=== PATIENT | male | born 2000 | race Caucasian/White ===

== ENCOUNTER 2019-10-21 09:57 | Day surgery (SDC) | payer OTHER ==
[~2019-10-21 09:57] MED LIST: Buffered Lidocaine 1% SYRIN* 1 ML/SYRINGE INTRADERM ONE; Famotidine IV* 10 MG/ML 2 ML (20 mg) IV ONE; Lactated Ringers 1000 ML Bag* 1,000 ML IV SCH
[2019-10-21] MEDS ORDERED: ceFAZolin 2 GM PREMIX in ORs 2 GM/50 ML BAG ONE (10:10)
[2019-10-21] MEDS ORDERED: ceFAZolin VIAL(*) VIAL ONE (10:10)
[2019-10-21] MEDS ORDERED: Famotidine IV* 10 MG/ML 2 ML (20 mg) ONE (10:11)
[2019-10-21] MEDS ORDERED: fentaNYL* 50 MCG/ML 2 ML VIAL (100 MCG VIAL) ONE ×2 (10:53→12:14)
[2019-10-21] MEDS ORDERED: Midazolam* 1 MG/ML 5 ML VIAL (5 MG) ONE (10:53)
[2019-10-21] MEDS ORDERED: Lidocaine 1% MPF ** 5 ML VIAL ONE (11:19)
[2019-10-21] MEDS ORDERED: ROPIVACAINE 5 MG/ML 30 ML BTL (0.5%) ONE (11:19)
[2019-10-21] MEDS ORDERED: Ketorolac INJ* 30 MG/ML 1 ML VIAL ONE (12:10)
[2019-10-21] MEDS ORDERED: Lidocaine 2% PF * 5 ML VIAL ONE (12:14)
[2019-10-21] MEDS ORDERED: Succinylcholine* 20 MG/ML 10 ML VIAL ONE (12:14)
[2019-10-21] MEDS ORDERED: Dexamethasone IV* 4 MG/ML 1 ML (4 MG) ONE (12:14)
[2019-10-21] MEDS ORDERED: Ondansetron INJ* 2 MG/ML VIAL ONE (12:14)
[2019-10-21] MEDS ORDERED: DiMENhydriNATE IV* 50 MG/ML VIAL ONE (12:14)
[2019-10-21] MEDS ORDERED: Propofol* 10 MG/ML 20 ML BTL ONE (12:14)
[2019-10-21] MEDS ORDERED: DiMENhydriNATE IV* 50 MG/ML VIAL IV PUSH PRN (13:46)
[2019-10-21] MEDS ORDERED: Acetaminophen TAB* 325 MG PO PRN (13:46)
[2019-10-21] MEDS ORDERED: oxyCODONE TAB* 5 MG TAB PO PRN (13:46)
[2019-10-21] MEDS ORDERED: Naloxone* 0.4 MG/ML 1 ML VIAL IV PRN (13:46)
[2019-10-21 15:20] VITALS: BP 141/81
--- NOTE | 2019-10-31 16:19 | OP ---
OPERATIVE REPORT: DATE OF OPERATION: 10/21/19 DATE OF : 89 ATTENDING SURGEON: Zac Dominguez MD SUPERVISOR SCENIC ARTS: PRISCILLA Jacobs Rocket Scientist was needed for the entirety of the case to help with positioning, retraction, and utilized throughout all portions of the case. ANESTHESIOLOGIST: Dr. Beltran. ANESTHESIA: General interscalene block. PRE-OP DIAGNOSIS: Posterior labral tear. POST-OP DIAGNOSIS: Posterior labral tear. OPERATIVE PROCEDURE: Right shoulder arthroscopy with posterior labral repair and chondroplasty. COMPLICATIONS: None. ESTIMATED BLOOD LOSS: Minimal. IMPLANTS USED: Three [employer] Bioraptors. DISPOSITION: Stable. 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 He was diagnosed with labral tear with concerns that this could be an anterior, faith healer ior as well as a superior labral tear. After extensive discussion of the risks and benefits of opera tive versus nonoperative treatment, he has elected to proceed with surgical treatment. Risks include d, but not limited to bleeding; infection; damage to nerves, vessels, surrounding structures; wound n onhealing; persistent pain; need for further surgery; scarring; stiffness; incomplete relief of sympt oms; and risks of anesthesia. DESCRIPTION OF PROCEDURE: The patient was greeted in the preoperative area by the attending surgeon. The correct extremity was marked and consent was confirmed. The patient underwent interscalene nerv e block by anesthesiologist, after which he was brought back to the operating suite. He was placed i n supine position on the operating table. He underwent general anesthesia with endotracheal intubati on, after which he was placed in the left lateral decubitus position. With all bony prominences padd ed, he was secured with a pegboard. The right shoulder was draped unsterile with 10 and then 15 poun ds of traction. The right shoulder was prepped and draped in the usual sterile fashion using chlorhe xidine soap, scrub, and alcohol wipe and a final prep of ChloraPrep. After appropriate surgical pause indicating side, site, procedure, and administration of antibiotics, a standard posterolateral portal was made sharply with 11 blade. Scope was then introduced into the joint. Joint was examined. There was abundant synovitis posteriorly and obvious tearing of the post erior aspect of the labrum. There was some mild chondrosis that was present as well. The low anterio r portal was made. The anterior labrum had some unstable fraying, but no [place] tear, and there was n o evidence of subluxation, and there was a very mild drive-through sign. The biceps was also examine d. There was really minimal synovitis about the biceps itself. Superior labrum was attached. Decis ion was made to leave this alone as well. He had a very minimal amount of synovitis at the base of s uperior labrum and the undersurface of the rotator cuff was intact. Attention was directed to posteri or labrum. Two cannulas were placed anteriorly, 1 low anterior cannula 8.5 mm, the second one was 5. 5 mm superiorly in the interval. The camera was then positioned there. 30 and 70 degree scopes were then used to help visualize. An 8.5 mm cannula was then placed posteriorly. The elevator was used t o gently elevate the labrum. The rasp and kiley were then used to roughen up the glenoid rim. Aft er this was done, 3 anchors were placed beginning with the 7 o'clock position and the Bioraptors were placed with excellent purchase. Suture was passed in a simple configuration and then tied down usin g arthroscopic knot- tying technique. A second anchor was placed at around the 8 o'clock position an d the last anchor was placed around the 9 to 9:30 position. These were all passed in simple configur ation and tied down using arthroscopic knot-tying technique. This helped to reapproximate the labrum . There was a good bony bleeding bed. Final images were obtained. The biceps was checked once agai n. Again, the decision was made to not to do a tenodesis as biceps looked pretty good overall. Jeny l images were obtained. The portals were closed with 3-0 nylon. Sterile dressing was applied. A Cr yo/Cuff and UltraSling were applied. He was awoken from anesthesia and transferred to PACU in stable condition. POSTOPERATIVE PLAN: He will be in the sling for 4 weeks. Discharged on pain medications. DVT proph ylaxis was considered, but deferred due to no previous personal or family history. I will see the priscilla mendoza back in 10 to 14 days. [id number]/[facility] #: [id number]
== END 2019-10-21 15:12 | disposition home or self-care (01) ==
LOC: OREAST 09:57
PROVIDERS: ATTEND Orthopaedic Surgery
DX: S43.491A Other sprain of right shoulder joint, initial encounter (principal); M25.311 Other instability, right shoulder; M25.511 Pain in right shoulder; X58.XXXA Exposure to other specified factors, initial encounter; Y92.9 Unspecified place or not applicable; G89.18 Other acute postprocedural pain
CPT/HCPCS: J0330; J0690; J1100; J1240; J1885; J2250; J2405; J2704; J2795; J3010